=== PATIENT | male | born 2000 | race Caucasian/White ===

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

== ENCOUNTER 2018-04-29 15:56 | Emergency (ER) | payer BC | END 2018-04-29 16:54 | disposition home or self-care (01) | LOC: BURERS 15:56 | DX: S61.215A Laceration without foreign body of left ring finger without damage to nail, initial encounter (principal); W26.8XXA Contact with other sharp object(s), not elsewhere classified, initial encounter | CPT/HCPCS: 12001 ==

== ENCOUNTER 2021-06-21 18:16 | Emergency (ER) | payer BC, SELFPAY ==
[2021-06-21] MEDS ORDERED: diphenhydrAMINE 25 MG CAP ONE (19:09)
[2021-06-21] MEDS ORDERED: Dexamethasone 10 MG/ML VIAL ONE (19:09)
== END 2021-06-21 19:23 | disposition home or self-care (01) ==
LOC: BURERS 18:16
DX: L23.7 Allergic contact dermatitis due to plants, except food (principal); F17.200 Nicotine dependence, unspecified, uncomplicated
CPT/HCPCS: 96372; 99282; J1100

== ENCOUNTER 2024-10-25 19:09 | Emergency (ER) | payer BC, SELFPAY ==
[2024-10-25] MEDS ORDERED: predniSONE 20 MG TAB ONE (20:16)
== END 2024-10-25 20:19 | disposition home or self-care (01) ==
LOC: BURERS 19:09
DX: L23.7 Allergic contact dermatitis due to plants, except food (principal); F17.200 Nicotine dependence, unspecified, uncomplicated
CPT/HCPCS: 99283; J7512

== ENCOUNTER 2024-10-27 11:23 | Emergency (ER) | payer BC ==
[2024-10-27] MEDS ORDERED: Dexamethasone 10 MG/ML VIAL ONE (11:51)
[2024-10-27] MEDS ORDERED: Cephalexin 250 MG CAP ONE (11:52)
== END 2024-10-27 12:07 | disposition home or self-care (01) ==
LOC: BURERS 11:23
DX: L30.9 Dermatitis, unspecified (principal); F17.200 Nicotine dependence, unspecified, uncomplicated
CPT/HCPCS: 96372; 99282; J1100